=== PATIENT | male | born 1965 | race Caucasian/White ===

== ENCOUNTER 2017-08-07 10:20 | Emergency (ER) | payer BC, OTHER ==
--- NOTE | 2017-08-07 11:37 | EDM.PDOC ---
ED HPI GENERAL MEDICAL PROBLEM - General Chief Complaint: Upper Extremity Injury/Pain Stated Complaint: crush injury Time Seen by Provider: 08/07/17 10:50 Source of Information: Reports: Patient History Limitations: Reports: No Limitations - History of Present Illness INITIAL COMMENTS - FREE TEXT/NARRATIVE: Patient comes to ER with complaint of crush type injury to left thumb. Thumb was caught after [employer] released. Has history of severe injury to the same thumb years ago that left distal IP joint of finger fused. No new numbness/ tingling of joint. No new deformity. No bleeding/laceration. Rest of hand/ fingers were not involved in the accident. No other complaints during ROS. left thumb Pain Score (Numeric/FACES): 3 - Related Data Allergies Allergy/AdvReac Type Severity Reaction Status Date / Time No Known Allergies Allergy Verified 08/07/17 10:40 Home Meds: Home Meds Omeprazole 20 mg PO DAILY 10/03/14 [History] Past Medical History Gastrointestinal History: Reports: GERD Social & Family History - Family History Family Medical History: Noncontributory Review of Systems - Review of Systems Review Of Systems: ROS reveals no pertinent complaints other than HPI. ED EXAM, GENERAL - Physical Exam Exam: See Below Exam Limited By: No Limitations General Appearance: Alert, WD/WN, No Apparent Distress Eye Exam: Bilateral Eye: EOMI, PERRL Head: Atraumatic, Normocephalic Respiratory/Chest: No Respiratory Distress Cardiovascular: Normal Peripheral Pulses Peripheral Pulses: 2+: Radial (L), Radial (R) Extremities: Normal Capillary Refill, Limited Range of Motion (chronic, due to fusion of distal IP joint left thumb), Other (mild swelling of left thumb noted. General tenderness noted of whole thumb. No deformity. Rest of hand/ fingers non-tender with intact ROM. ). No: Joint Swelling, Increased Warmth, Pallor, Redness Neurological: Alert, Oriented, Normal Cognition, No Motor/Sensory Deficits ( grossly) Psychiatric: Normal Affect, Normal Mood Skin Exam: Warm, Dry, Intact, Normal Color ED TRAUMA EXTREMITY PROCEDURES - Splinting Left Thumb Pre-Procedure NV Status: Normal Post-Procedure NV Status: Normal Splint Material: Aluminum-Foam Splint Design: Other (finger) Applied & Form Fitted By: Nurse Provider Post-Splint Application NV Check: NV Status Normal, Good Position Complications: No Course - Vital Signs Last Recorded V/S: Last Vital Signs Temp 36.9 C 08/07/17 10:34 Pulse 77 08/07/17 10:34 Resp 20 08/07/17 10:34 BP 138/76 08/07/17 10:34 Pulse Ox 96 08/07/17 10:34 - Orders/Labs/Meds Orders: Active Orders 24 hr Category Date Time Status Fingers Thumb Lt FA [CR] Stat Exams 08/07/17 10:28 Taken - Radiology Interpretation Free Text/Narrative:: Xray of thumb did not appear to show acute fracture. - Re-Assessments/Exams Free Text/Narrative Re-Assessment/Exam: 08/07/17 14:00 Patient's thumb splinted for comfort and protection. Precautions reviewed, including signs of compartment syndrome. Tylenol/NSAIDs ok for pain as is elevation. No work over the weekend. F/U appointment made for patient for Thursday locally. Departure - Departure Time of Disposition: 11:36 Disposition: Home, Self-Care 01 Condition: Good Clinical Impression: Crushing injury of thumb, left Qualifiers: Encounter type: initial encounter Qualified Code(s): S67.02XA - Crushing injury of left thumb, initial encounter - Discharge Information Instructions: Acute Compartment Syndrome, Thumb Sprain Referrals: PCP,Unknown [Primary Care Provider] - Forms: ED Department Discharge Additional Instructions: Wear splint for comfort. Follow up Thursday at clinic for recheck and further work restrictions as needed. Ibuprofen/Tylenol as needed for pain. Ice/ elevation may also be helpful. - My Orders Last 24 Hours: My Active Orders 08/07/17 10:28 Fingers Thumb Lt FA [CR] Stat - Assessment/Plan Last 24 Hours: My Active Orders 08/07/17 10:28 Fingers Thumb Lt FA [CR] Stat
== END 2017-08-07 11:45 | disposition home or self-care (01) ==
LOC: LL.ED 10:20
DX: S67.02XA Crushing injury of left thumb, initial encounter (principal); K21.9 Gastro-esophageal reflux disease without esophagitis; Z79.899 Other long term (current) drug therapy; W23.0XXA Caught, crushed, jammed, or pinched between moving objects, initial encounter; Y99.0 Civilian activity done for income or pay
CPT/HCPCS: 73140-FA; 99283

== ENCOUNTER 2018-04-23 22:44 | Emergency (ER) | payer BC, OTHER ==
[2018-04-23] MEDS ORDERED: Sodium Chloride 0.9% 10 ML Syringe FLUSH PRN (22:51)
[2018-04-23] MEDS ORDERED: diphenhydrAMINE 50 MG/ML SDV IVPUSH ONE (22:51)
[2018-04-23] MEDS ORDERED: Famotidine 20 MG/2 ML SDV IVPUSH ONE (22:51)
--- NOTE | 2018-04-23 22:51 | EDM.PDOC ---
ED HPI GENERAL MEDICAL PROBLEM - General Chief Complaint: General Stated Complaint: Rash Time Seen by Provider: 04/23/18 22:45 Source of Information: Reports: Patient, Family (), Old Records ([facility] EMR. No paper hospital chart available.) History Limitations: Reports: No Limitations - History of Present Illness INITIAL COMMENTS - FREE TEXT/NARRATIVE: The patient was brought to the emergency room via private automobile by his for evaluation of progressive severe pruritic rash which started at about 22:00 hours and is nonresponsive to 25 mg of Benadryl taken with onset of his symptoms. Note that patient did eat some steak and shrimp at about 19:30 hours this evening, however he has tolerated shrimp well in the past. He denies any other known change in allergen exposure, including medications, soaps, clothing , etc. He denies any angioedema, dysphagia, or other allergic type symptoms. The patient also denies any specific pain or discomfort. The patient denies any chest pain/pressure, heart flutter, dizziness, orthostasis, orthopnea, diaphoresis, paresthesias, recent decreased exercise tolerance, or any other anginal-type symptoms. No recent history of abdominal pain, heartburn, nausea, diarrhea, melena, gross hematochezia, or any food intolerance, including fatty foods, etc.. The patient also denies any recent fever, cough, wheezing, dyspnea , etc.. He has not had similar symptoms in the past in spite of his history of allergic rhinitis. Onset: Today, Sudden Onset Date: 04/23/18 Onset Time: 22:00 Duration: Constant, Getting Worse Location: Reports: Head, Face, Neck, Chest, Abdomen, Back, Upper Extremity, Left , Upper Extremity, Right, Generalized, Other (No pain) Severity: Moderate Improves with: Reports: None Worsens with: Reports: None Context: Reports: Other (As above) Associated Symptoms: Reports: Rash. Denies: Confusion, Chest Pain, Cough, Diaphoresis, Fever/Chills, Headaches, Loss of Appetite, Malaise, Nausea/Vomiting , Seizure, Shortness of Breath, Syncope, Weakness Treatments APPRENTICE JOCKEY: Reports: Other Medication(s) (As above) - Related Data Allergies Allergy/AdvReac Type Severity Reaction Status Date / Time No Known Allergies Allergy Verified 08/07/17 10:40 Home Meds: Home Meds Famotidine [Pepcid] 20 mg PO BID #14 tab 04/23/18 [Rx] Loratadine 10 mg PO DAILY 04/23/18 [History] Multivitamin [Multivitamins] 1 tab PO DAILY 04/23/18 [History] Pantoprazole Sodium [Protonix] 40 mg PO BEDTIME 04/23/18 [History] atorvaSTATin Calcium [Atorvastatin Calcium] 20 mg PO DAILY 04/23/18 [History] diphenhydrAMINE HCl [Benadryl] 50 mg PO Q4HR PRN #100 capsule 04/23/18 [Rx] predniSONE [Prednisone] 2 tab PO BIDMEALS #20 tablet 04/23/18 [Rx] Past Medical History HEENT History: Reports: Allergic Rhinitis, Impaired Vision, Other (See Below). Denies: Cataract, Glaucoma, Hard of Hearing, Macular Degeneration, Otitis Media , Retinal Detachment Other HEENT History: Patient wears glasses. Cardiovascular History: Reports: High Cholesterol. Denies: Afib, Aneurysm, Arrhythmia, Blood Clots/VTE/DVT, CAD, Heart Failure, Heart Murmur, Hypertension , AR, PVD, Syncope Gastrointestinal History: Reports: GERD Musculoskeletal History: Reports: Arthritis, Fracture, Osteoarthritis, Other ( See Below) Other Musculoskeletal History: Fracture of digit #1 of the left hand requiring surgery as below. Psychiatric History: Reports: None Endocrine/Metabolic History: Reports: Obesity/BMI 30+ - Past Surgical History Musculoskeletal Surgical History: Reports: Other (See Below) Other Musculoskeletal Surgeries/Procedures:: previous injury of left thumb with constructive surgery - Past Imaging History Past Imaging History: Reports: CAT Scan (CT of the brain on 10/03/04.) Social & Family History - Family History Family Medical History: Noncontributory - Tobacco Use Smoking Status *Q: Former Smoker Tobacco Use Within Last Twelve Months: No Years of Tobacco use: 21 Packs/Tins Daily: 2 Packs/Tins Daily Comment: Smoked between ages 20 and 41. Used Tobacco, but Quit: Yes Smoking Cessation Information Provided To Patient: No Second Hand Smoke Exposure: No Second Hand Smoke Education Provided: No - Living Situation & Occupation Living situation: Reports: , with Family Occupation: Employed ([employer]) ED ROS GENERAL - Review of Systems Review Of Systems: ROS reveals no pertinent complaints other than HPI. ED EXAM, GENERAL - Physical Exam Exam: See Below Exam Limited By: No Limitations General Appearance: Alert, WD/WN, No Apparent Distress Eye Exam: Bilateral Eye: EOMI, Normal Inspection (No nystagmus. Patient wearing glasses.), PERRL Ears: Normal External Exam, Normal Canal, Hearing Grossly Normal, Normal TMs Nose: Normal Inspection, Normal Mucosa, No Blood Throat/Mouth: Normal Inspection, Normal Lips, Normal Gums, Normal Oropharynx, Normal Voice, No Airway Compromise, Other (No facial angioedema or uvular swelling). No: Normal Teeth (Multiple missing teeth with no acute caries), Dysphagia, Perioral Cyanosis Head: Atraumatic, Normocephalic. No: Facial Swelling, Facial Tenderness, Sinus Tenderness Neck: Normal Inspection, Supple, Non-Tender, Full Range of Motion. No: Lymphadenopathy (L), Lymphadenopathy (R), Thyromegaly Respiratory/Chest: No Respiratory Distress, Lungs Clear, Normal Breath Sounds, No Accessory Muscle Use, Chest Non-Tender. No: Pleural Rub, Retractions Cardiovascular: Normal Peripheral Pulses, Regular Rate, Rhythm, No Edema, No Gallop, No JVD, No Murmur, No Rub. No: Gallop/S3, Gallop/S4, Friction Rub Peripheral Pulses: 2+: Radial (L), Radial (R) GI/Abdominal: Normal Bowel Sounds, Soft, Non-Tender, No Organomegaly, No Distention, No Abnormal Bruit, No Mass, Other (Obese). No: Guarding (Male) Exam: Deferred Rectal (Males) Exam: Deferred Back Exam: Normal Inspection, Full Range of Motion. No: CVA Tenderness (L), CVA Tenderness (R), Muscle Spasm Extremities: Normal Range of Motion, Non-Tender, No Pedal Edema, Normal Capillary Refill, Other (Diffuse confluent rash in upper extremities as below). No: Stacia's Sign Neurological: Alert, Oriented, CN II-XII Intact, Normal Cognition, Normal Gait, No Motor/Sensory Deficits Psychiatric: Normal Affect, Normal Mood Skin Exam: Rash (Moderate diffuse confluent macular papular rash in the face, neck, trunk, and upper extremities bilaterally extending into the inguinal regions bilaterally by history). No: Diaphoretic, Lymphangitis, Wound/Incision Lymphatic: No Adenopathy Course - Vital Signs Last Recorded V/S: Last Vital Signs Temp 36.8 C 04/23/18 23:15 Pulse 87 04/23/18 23:15 Resp 18 04/23/18 23:15 BP 132/85 04/23/18 23:15 Pulse Ox 98 04/23/18 23:15 Vital Signs - 24 hr 04/23/18 23:15 Temperature [ 36.8 C Oral] Pulse, 87 Peripheral [ Right Pulse Oximetry] Respiratory 18 Rate Blood Pressure 132/85 [Right Upper Arm] O2 Sat by Pulse 98 Oximetry - Orders/Labs/Meds Orders: Active Orders 24 hr Category Date Time Status Peripheral IV Care [RC] . DIRECTED Care 04/23/18 22:51 Active Sodium Chloride 0.9% [Saline Flush] Med 04/23/18 22:51 Active 10 ml FLUSH ASDIRECTED PRN Obtain Past Medical Record [OM.PC] Routine Oth 04/23/18 22:51 Active Peripheral IV Insertion Adult [OM.PC] Routine Oth 04/23/18 22:51 Ordered Medication Orders Sodium Chloride (Saline Flush) 10 ml FLUSH ASDIRECTED PRN PRN Reason: Keep Vein Open Last Admin: 04/23/18 23:08 Dose: 10 ml Labs: None Meds: Medications Generic Name Dose Route Start Last Admin Trade Name Freq PRN Reason Stop Dose Admin Sodium Chloride 10 ml 04/23/18 22:51 04/23/18 23:08 Saline Flush FLUSH 10 ml ASDIRECTED PRN Administration Keep Vein Open Discontinued Medications Generic Name Dose Route Start Last Admin Trade Name Freq PRN Reason Stop Dose Admin Diphenhydramine HCl 50 mg 04/23/18 22:51 04/23/18 23:07 Benadryl IVPUSH 04/23/18 22:52 50 mg ONETIME ONE Administration Famotidine 40 mg 04/23/18 22:51 04/23/18 23:07 Pepcid IVPUSH 04/23/18 22:52 40 mg ONETIME ONE Administration Methylprednisolone Sodium Succinate 125 mg 04/23/18 22:52 04/23/18 23:07 Solu-Medrol IVPUSH 04/23/18 22:53 125 mg ONETIME ONE Administration - Radiology Interpretation Free Text/Narrative:: None Departure - Departure Time of Disposition: 00:15 Disposition: Home, Self-Care 01 Condition: Good Clinical Impression: Dermatitis, Peptic reflux disease Allergic rhinitis Qualifiers: Allergic rhinitis trigger: unspecified Allergic rhinitis seasonality: unspecified Qualified Code(s): J30.9 - Allergic rhinitis, unspecified Hyperlipidemia Qualifiers: Hyperlipidemia type: unspecified Qualified Code(s): E78.5 - Hyperlipidemia, unspecified - Discharge Information *PRESCRIPTION DRUG MONITORING PROGRAM REVIEWED*: Not Applicable *COPY OF PRESCRIPTION DRUG MONITORING REPORT IN PATIENT [place]: Not Applicable Prescriptions: diphenhydrAMINE HCl [Benadryl] 50 mg PO Q4HR PRN #100 capsule PRN Reason: Rash Famotidine [Pepcid] 20 mg PO BID #14 tab predniSONE [Prednisone] 2 tab PO BIDMEALS #20 tablet Instructions: Rash, [id number] Referrals: Latonia Boswell PA-C [Primary Care Provider] - Forms: ED Department Discharge Additional Instructions: 1. Follow up with your regular provider in 10-14 days as needed, if symptoms persist. Bring these discharge instructions with you to that visit.. 2. Next dose of Benadryl in 6 hours as needed secondary to medications given in the emergency room with sedation precautions with this medication 3. Start Pepcid tomorrow afternoon at supper 4. Sedation precautions with no driving, etc. for 12 hours because of emergency room medications. 5. Immediately after this visit verify that your cellular telephone's voicemail has been activated and is empty. Also verify that your home telephone 's answering machine is operating properly and has space to receive messages. Note that it is sometimes necessary for us to be able to contact you at a later date to discuss your medical care. 6. Please remember that we are ALWAYS here for you and want to answer any questions you may have. Feel free to call the hospital any time and we call you back ZACH. - Problem List & Annotations (1) Dermatitis SNOMED Code(s): 018577152 Code(s): L30.9 - DERMATITIS, UNSPECIFIED Status: Acute Priority: High Current Visit: Yes Onset Date: 04/24/18 Annotation/Comment:: Allergic dermatitis of unknown etiology. Excellent results with aggressive medical therapy as above. No evidence of angioedema, dyspnea, etc. with no direct indication for IM epinephrine therapy at this time. Patient was symptom free at discharge. (2) Allergic rhinitis SNOMED Code(s): 16020421 Code(s): J30.9 - ALLERGIC RHINITIS, UNSPECIFIED Status: Chronic Priority : Medium Current Visit: Yes Annotation/Comment:: Stable by history with current medical therapy. Qualifiers: Allergic rhinitis trigger: unspecified Allergic rhinitis seasonality: unspecified Qualified Code(s): J30.9 - Allergic rhinitis, unspecified (3) Hyperlipidemia SNOMED Code(s): 60303044 Code(s): E78.5 - HYPERLIPIDEMIA, UNSPECIFIED Status: Chronic Priority: Medium Current Visit: Yes Annotation/Comment:: Under medical therapy. Weight loss in moderation is advisable secondary to his persistent obesity. Qualifiers: Hyperlipidemia type: unspecified Qualified Code(s): E78.5 - Hyperlipidemia , unspecified (4) Peptic reflux disease SNOMED Code(s): 499711032 Code(s): K21.9 - GASTRO-ESOPHAGEAL REFLUX DISEASE WITHOUT ESOPHAGITIS Status: Chronic Priority: Medium Current Visit: Yes Annotation/Comment:: Stable with current medical therapy. - Problem List Review Problem List Initiated/Reviewed/Updated: Yes - My Orders Last 24 Hours: My Active Orders 04/23/18 22:51 Peripheral IV Care [RC] . DIRECTED Sodium Chloride 0.9% [Saline Flush] 10 ml FLUSH ASDIRECTED PRN Obtain Past Medical Record [OM.PC] Routine Peripheral IV Insertion Adult [OM.PC] Routine - Assessment/Plan Last 24 Hours: My Active Orders 04/23/18 22:51 Peripheral IV Care [RC] . DIRECTED Sodium Chloride 0.9% [Saline Flush] 10 ml FLUSH ASDIRECTED PRN Obtain Past Medical Record [OM.PC] Routine Peripheral IV Insertion Adult [OM.PC] Routine Assessment:: As above Plan: As above. Extensive precautions were given to the patient and his , who are in agreement with the treatment plan. See Patient Instructions for further treatment and plan.
[2018-04-23] MEDS ORDERED: methylPREDNISolone Sodium Succinate 125 MG/2 ML SDV IVPUSH ONE (22:52)
== END 2018-04-24 00:05 | disposition home or self-care (01) ==
LOC: LL.ED 22:44
DX: L30.9 Dermatitis, unspecified (principal); J30.9 Allergic rhinitis, unspecified; K21.9 Gastro-esophageal reflux disease without esophagitis; E78.5 Hyperlipidemia, unspecified; E78.00 Pure hypercholesterolemia, unspecified; Z79.899 Other long term (current) drug therapy; Z87.891 Personal history of nicotine dependence
CPT/HCPCS: 96374; 96375; 99283-25; J1200; J2930; J3490

== ENCOUNTER 2024-04-07 11:24 | Emergency (ER) | payer BC | END 2024-04-07 12:30 | disposition home or self-care (01) | LOC: LL.ED 11:24 | DX: J01.90 Acute sinusitis, unspecified (principal); I10 Essential (primary) hypertension; E78.00 Pure hypercholesterolemia, unspecified; K21.9 Gastro-esophageal reflux disease without esophagitis; Z79.899 Other long term (current) drug therapy | CPT/HCPCS: 99283 ==